=== PATIENT | female | born 1940 | race Caucasian/White ===

== ENCOUNTER 2018-08-24 20:49 | Inpatient (IN) | payer MEDICARE | END 2018-08-27 16:00 | disposition home health service (06) | LOC: ED HOLD 23:54 → ER 20:49 → ORTHO 4S 08-25 02:52 | DX: S43.024A Posterior dislocation of right humerus, initial encounter (principal); K66.1 Hemoperitoneum; S42.401A Unspecified fracture of lower end of right humerus, initial encounter for closed fracture; S32.592A Other specified fracture of left pubis, initial encounter for closed fracture; S32.810A Multiple fractures of pelvis with stable disruption of pelvic ring, initial encounter for closed fracture ==